=== PATIENT | male | born 1995 | race Caucasian/White ===

== ENCOUNTER 2021-01-03 10:24 | Emergency (ER) | payer OTHER ==
[2021-01-03 10:42] LABS: BASOPHIL 0.2 % (0-2); EOSINOPHIL 1.6 % (0-5); HCT 43.7 % (42.0-52.0); HGB 15.4 g/dl (13.2-18.0); LYMPHOCYTE 8.9 % (15-48); MCH 30.2 pg (25.0-31.0); MCHC 35.2 g/dL (32.0-36.0); MCV 85.7 fL (78.0-100.0); MONOCYTE 8.6 % (0-12); MPV 9.7 fL (6.0-9.5); NEUTROPHIL 80.4 % (41-80); NRBC 0; PLT 195 K/uL (150-400); WBC 10.4 K/uL (4.0-10.5)
[2021-01-03 10:56] LABS: BILIRUBIN NEGATIVE (NEGATIVE); BLOOD NEGATIVE Ery/uL (NEGATIVE); CLARITY CLEAR (CLEAR); COLOR YELLOW (YELLOW); GLUCOSE (U) NORMAL (NORMAL); LEUKOCYTES NEGATIVE Leu/uL (NEGATIVE); NITRITE NEGATIVE (NEGATIVE); PROTEIN NEGATIVE (NEGATIVE); SPECIFIC GRAVITY 1.015 (1.001-1.030); pH 8.5 (5.0-9.0)
[2021-01-03 11:09] LABS: ALBUMIN 4.2 g/dL (3.4-5.0); BILIRUBIN - TOTAL 0.7 mg/dL (0.2-1.0); BUN/CREAT RATIO (CALC) 15.8 RATIO; CREATININE 0.95 mg/dL (0.67-1.17); GLOBULIN (CALCULATION) 3.7 g/dL; TOTAL PROTEIN 7.9 g/dL (6.4-8.2)
[2021-01-03] MEDS ORDERED: ONDANSETRON ODT4 MG PO (12:46)
[2021-01-03] MEDS ORDERED: CYCLOBENZAPRINE10 MG PO (12:46)
[2021-01-03] MEDS ORDERED: NAPROXEN500 MG PO (12:46)
== END 2021-01-03 12:51 | disposition home or self-care (01) ==
LOC: FER 10:24
PROVIDERS: Internal Medicine
DX: R10.31 Right lower quadrant pain (principal); R11.0 Nausea; F17.290 Nicotine dependence, other tobacco product, uncomplicated
CPT/HCPCS: 36415; 80053; 81003; 82150; 83690; 85025; Q9967